=== PATIENT | female | born 1955 | race Caucasian/White ===

== ENCOUNTER 2021-11-08 12:49 | Emergency (ER) | payer OTHER ==
[~2021-11-08] VITALS: Ht 172.7 cm; Wt 79.1 kg
[2021-11-08 12:56] VITALS: TEMP 97.7
[2021-11-08] MEDS ORDERED: PRINIVIL20 MG PO (13:39)
[2021-11-08] MEDS ORDERED: EUTHYROX25 MCG (13:40)
[2021-11-08] MEDS ORDERED: ULTRAM 50MG TAB50 MG PO (13:41)
[2021-11-08 15:20] VITALS: BP 165/100; PULSE 78
== END 2021-11-08 15:20 | disposition home or self-care (01) ==
LOC: COL.ER 12:49
DX: S42.254A Nondisplaced fracture of greater tuberosity of right humerus, initial encounter for closed fracture (principal); Z28.310 Unvaccinated for COVID-19; W18.30XA Fall on same level, unspecified, initial encounter